=== PATIENT | male | born 1940 | race Caucasian/White ===

== ENCOUNTER → 2016-04-10 | Outpatient (CLI) | payer MEDICARE ==
[~2016-04-10] MED LIST: ENOX40P SQ; GADODIAMIDE PF 287 MG/ML 5 ML VIAL (for RAD MRI) IV ONE; HYDR-3580 PO; LATA0.00 OP; LEVE500 PO; LEVEMIR SQ; LEXA10TA PO; LISI2.5T3 PO; LYRI50CA2 PO; METF-324 PO; METO25 PO; OMNI1SUS LEFT EYE; SIMV10TA PO; TAMS0.4C67 PO; TEMA15 PO; TIMO0.5S29 EACH EYE; VITA200017 PO
--- NOTE | 2016-04-10 12:01 | RADRPT ---
EXAM DATE/TIME: 04/10/2016 10:37 [place] COMPARISON: MRI BRAIN W & W/O CONTRAST, October 04, 2015, 11:31. INDICATIONS : Mass. Brain mass. CONTRAST: 14 cc Omniscan (gadodiamide) IV MEDICAL HISTORY : Hypercholesterolemia. Diabetes. SURGICAL HISTORY : Brain mass removal. ENCOUNTER: Initial ACUITY: 1 day PAIN SCORE: 0/10 LOCATION: cranial TECHNIQUE: Multiplanar, multisequence MRI of the brain was performed both prior to and following the administrat ion of paramagnetic contrast. 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 Current measurements are 2.4 x 2.2 x 2.2 cm. This mass is increased on T2 signal and decrease d T1 signal with no associated adjacent edema. A second mass is identified adjacent to the falx in th e right frontal lobe with a small dural tail identified on coronal imaging. This mass measures 2.0 x 2.0 x 2.7 cm and is also unchanged as compared to prior exam. There are scattered areas of increased T2 signal identified within the white matter periventricular lesion adjacent to the right frontal mas s, unchanged from prior exam and consistent with atrophy. CONCLUSION: Stable exam without evidence of complicating features. Marcela Santos MD on April 10, 2016 at 11:39 Board Certified Radiologist. This report was verified electronically.
== END ==
LOC: HRAD 09:35
PROVIDERS: ATTEND Radiology Radiation Oncology
DX: D33.2 Benign neoplasm of brain, unspecified (principal)
CPT/HCPCS: 70553; A9579